=== PATIENT | male | born 1965 | race Caucasian/White ===

== ENCOUNTER 2016-12-20 06:03 | Day surgery (SDC) | payer OTHER ==
[2016-12-20] VITALS (12 sets, daily range): BP systolic 127–211; BP diastolic 64–129; PULSE 73–104; RESP 11–18; O2SAT 94–100
[~2016-12-20] VITALS: Ht 190.5 cm; Wt 91.4 kg
[~2016-12-20 06:03] MED LIST: Dexamethasone Inj 20 MG in 0.9% Sodium Chloride 50 ML IV ONE; GABA800T2 PO; IBUP800T28 PO; Lactated Ringer's 1,000 ML IV ONE
[2016-12-20] MEDS ORDERED: Rocuronium 10 mg/mL 5 mL Inj ONE (06:04)
[2016-12-20] MEDS ORDERED: MeTOProlol 1 mg/mL 5 mL Inj ONE (06:04)
[2016-12-20] MEDS ORDERED: Neostigmine 1 mg/mL 10 mL Inj ONE (06:04)
[2016-12-20] MEDS ORDERED: Glycopyrrolate 0.2 mg/mL 5 mL Inj ONE (06:04)
[2016-12-20] MEDS ORDERED: Ondansetron 2 mg/mL 2 mL Inj ONE (06:04)
[2016-12-20] MEDS ORDERED: Remifentanil 1 mg/3 mL Inj ONE (06:04)
[2016-12-20] MEDS ORDERED: fentaNYL-PF 50 mCg/mL 2 mL Inj ONE (06:04)
[2016-12-20] MEDS ORDERED: MetoCLOpramide 5 mg/mL 2 mL Inj ONE (06:04)
[2016-12-20] MEDS ORDERED: Propofol 10,000 mCg/mL 20 mL Inj ONE (06:04)
[2016-12-20] MEDS ORDERED: PRE20 PO (06:30)
[2016-12-20] MEDS ORDERED: Lactated Ringer's 1,000 ML IV ONE (07:30)
[2016-12-20] MEDS ORDERED: Bacitracin Ointment Packet TOPICAL ONE (07:55)
[2016-12-20] MEDS ORDERED: Lidocaine 1%-Epi 1:100,000 20 mL Inj INFILTRATE ONE (07:55)
[2016-12-20] MEDS ORDERED: Lactated Ringer's 500 ML IV PRN (08:07)
[2016-12-20] MEDS ORDERED: Lactated Ringer's 1,000 ML IV SCH (08:07)
--- NOTE | 2016-12-20 08:07 | PCM.HPANE ---
Patient Data Surgeon Admitting Provider: Attending Provider:Herman Espino MD Primary Care Physician:Lynne Guadalupe Other Provider:[place] [facility] Reason for Visit Deviated Nasal Septum, Nasal Polyp Ht/WT & BMI Height (Feet): 6 Height (Inches): 3.00 Weight (Kilograms): 91.4 Body Mass Index 25.00 Allergies Coded Allergies: No Known Allergies (Unverified , 12/15/16) Past Anesthesia History Anesthesia History: Denies:: Abnormal Airway, Anesthesia Reactions, Difficult Intubation, Fam Anesthesia Reaction Diabetes History Hx Diabetes?: No MRSA MRSA: No Medications Hypertension Medication: No Home Meds Incl Beta Izabel: No Reported Medications Prednisone (PredniSONE)20 Mg Klxopb25 Mg PO DAILY Ref 0 12/20/16 Ibuprofen 800 Mg [id number] Mg PO TID PRN For Pain Ref 0 12/15/16 Gabapentin 800 Mg [id number] Mg PO DAILY PRN For Pain Ref 0 12/15/16 History History of ENT Problems?: Yes HEENT History: Positive for:: Dysphagia (hx of dilations ) Sinus Problem (current admission problem, will finish course abx, prednisone ) Denies:: Abnormal Airway Cataracts Difficult Intubation Glaucoma Hearing Problem TMJ Hx of Heart Problems?: Yes Cardiovascular History: Denies:: AICD Edema Heart Murmur Hypertension Irregular Heartbeat Pacemaker Peripheral Vascular Rheumatic Fever Hx of Respiratory Problem?: Yes Respiratory History: Positive for:: Use of C-PAP Machine Denies:: Asthma COPD Emphysema Oxygen Administration Pneumonia Tuberculosis Use of Inhalers / NEBS Hx Neurologic Problems?: Yes Neurological History: Positive for:: Headaches Denies:: CVA Multiple Sclerosis Parkinson's Disease Seizures TIA Hx of GI Problems?: Yes Gastrointestinal History: Positive for:: Gastroesphageal Reflux Heartburn Hiatal Hernia Denies:: Cirrhosis Liver Disease Rectal Bleeding Hx of Problems?: No Genitourinary History: Denies:: Kidney Stones Urinary Tract Infection Male Hx: Denies:: Prostate Problems Skin History: Denies:: History Skin Disorders? Pressure Ulcers Hx Musculoskeletal Problems?: Yes Musculoskeletal History: Positive for:: Back Injury (recent L4-5) Denies:: Fibromyalgia Joint Replacement Osteoarthritis Systemic Lupus Hx of Psycho/Social Problems?: No Psycho Social History: Denies:: Anxiety Hx Depression Hx Surgeries?: Yes (lami, cherry hernia, knee scope, prior sinus) Hx Any Other Health Problems?: Yes Other History: Denies:: Cancer Thyroid Disease History Blood Transfusions: Positive for:: Accept Blood Products? Denies:: Blood Transfusions Hx Diabetes: No Hx Alcohol Use: YesAlcoholic Drinks Per Day: once weeklyHx Substance Use: No Have You Smoked inLast 12 mo: No Stop/Bang S-Snoring: Do You Snore Loudly: Yes T-Tired: feel tired, fatigued: No O-Obsered: Observed not breath: No P-Blood Pressure: treated: No B- Body Mass Index > 35 kg/m2: No A- Age over 50: Yes N- Neck Large Circumference: No G- Gender Male: Yes ALVARO Total Score: 3 Risk Assessment Category Category 1A: Patient has history of documented sleep apnea, and HAS NOT received any narcotic, sedative or anesthesia administration during this stay. Category 1B: Patient has history of documented sleep apnea, and HAS received any narcotic , sedative or anesthesia administration during this stay Category 2: Patient has SUSPECTED Obstructive Sleep Apnea, and HAS received any narcotic , sedative or anesthesia administration during this stay. Category 3: Patient has SUSPECTED Obstructive Sleep Apnea and HAS NOT received narcotic, sedative or anesthesia administration during this stay. Category 4: Outpatient in Procedural Areas with known sleep apnea or who screen positive for High Risk via the STOP/BANG questionnaire. Exam Exam Vital Signs Vital Signs Date Time Temp Pulse Resp B/P Pulse Ox O2 Delivery O2 Flow Rate FiO2 12/20/16 06:47 36.0 81 18 159/93 97 Room Air 12/20/16 06:47 CPAP/BIPAP General Appearance: Alert, Oriented X3, Cooperative, No Acute Distress HEENT/AIRWAY: MP 2, Neck Movement (FROM), Mouth Opening (3 FBMO) Lungs: Clear to Auscultation, Normal Air Movement Heart: Exam Unremarkable, Regular Rate/Rhythm, No Murmurs/Rubs/Gallops Plan Impression Patient chart reviewed, patient interviewed and anesthestic plan with risks, benefits, and alternatives discussed, and informed consent obtained. NPO Status: 10pm ASA Physical Status: ASA2 Mod Systemic Disease Anesthetic Support Modalities: [place] Scope Anesthetic Plan: GA Bene/Risks/Altern/Consents: Yes HP Complete Prior to Induction: Yes David Queen MD Dec 20, 2016 07:01
[2016-12-20] MEDS ORDERED: MetoCLOpramide 5 mg/mL 2 mL Inj IVPUSH PRN (08:10)
[2016-12-20] MEDS ORDERED: Atropine 0.4 mg/mL Inj IVPUSH PRN (08:10)
[2016-12-20] MEDS ORDERED: Phenylephrine 10,000 mCg/mL Inj IVPUSH PRN (08:10)
[2016-12-20] MEDS ORDERED: Labetalol 5 mg/mL 4 mL Inj IV PRN (08:10)
[2016-12-20] MEDS ORDERED: fentaNYL-PF 50 mCg/mL 2 mL Inj IVPUSH PRN (08:10)
[2016-12-20] MEDS ORDERED: EPHEDrine Sulfate 50 mg/mL Inj IVPUSH PRN (08:10)
[2016-12-20] MEDS ORDERED: Ondansetron 2 mg/mL 2 mL Inj IVPUSH PRN (08:10)
[2016-12-20] MEDS: hydrALAZINE 20 mg/mL Inj IVPUSH PRN ×2 (09:53→10:01)
[2016-12-20] MEDS: HYDROmorphone 1 mg/mL Inj IVPUSH PRN ×2 (10:15→10:25)
[2016-12-20] MEDS ORDERED: HYDROcodone-APAP 7.5-325 mg/15 mL 15 mL Solution ONE (10:16)
--- NOTE | 2016-12-20 10:27 | PCM.ANEP1 ---
Post Anesthesia Phase 1 PACU Phase 1 Assessment Vital Signs Vital Signs Date Time Temp Pulse Resp B/P Pulse Ox O2 Delivery O2 Flow Rate FiO2 12/20/16 10:25 94 16 140/72 95 Room Air 12/20/16 10:10 99 15 151/79 95 Room Air 12/20/16 10:04 80 11 150/85 98 Simple Mask 8 12/20/16 10:00 37.2 79 11 161/91 98 Simple Mask 8 12/20/16 09:56 73 11 168/108 100 Simple Mask 8 12/20/16 09:50 76 16 180/116 99 Simple Mask 8 12/20/16 09:45 96 18 191/114 99 Simple Mask 8 12/20/16 09:39 36.5 104 15 211/129 100 Simple Mask 8 12/20/16 06:47 36.0 81 18 159/93 97 Room Air 12/20/16 06:47 CPAP/BIPAP Anesthetic Administered: GA Level of Alertness: Awake, talking GRACIA's with Equal Strength: Yes Pain: No Nausea or Vomiting: No Oxygen Delivery: Simple Mask Lungs: Clear to Auscultation, Normal Air Movement Dermatome Level: Full Sensation David Queen MD Dec 20, 2016 10:27
--- NOTE | 2016-12-20 10:28 | PCM.ANEP2 ---
Post Anesthesia Evaluation ASA/CMS Post Anesthesia VS in Patient's Normal Range?: Yes Resp Stable; Airway Patent?: Yes CV Function & Hydration Stable: Yes Mental Status Recovered?: Yes Pain control Satisfactory?: Yes N/V Control Satisfactory?: Yes David Queen MD Dec 20, 2016 10:27
--- NOTE | 2016-12-20 22:13 | OP ---
[address] [address] OPERATIVE REPORT PATIENT: ROBBIE MOE : 1965 MR#: [id number] ADMIT: 12/20/2016 JOB ID: [id number] DATE OF SURGERY: 12/20/2016 SURGEON: Herman Espino MD PREOPERATIVE DIAGNOSIS(ES): POSTOPERATIVE DIAGNOSIS(ES): INDICATIONS FOR PROCEDURE: Chronic valdez polypoid sinusitis, nasal obstruction and nasal polyps. OPERATION PERFORMED: 1. Right and left frontal endoscopic sinusotomy. 2. Right and left anterior and posterior ethmoid endoscopic sinusotomy. 3. Right sphenoid endoscopic sinusotomy. 4. Right maxillary endoscopic sinusotomy. 5. Right and left Submucous resection of the inferior turbinates. OPERATIVE FINDINGS: Polypoid degeneration with partial closure of the windows bleeding into the frontal ethmoids, right more than left. Right sphenoid and right maxillary sinus enlargement of the right and left inferior turbinates with reduced nasal airway. PROCEDURE IN DETAIL: With the patient supine on the operating table, general orotracheal anesthesia was used. Face was prepped and draped in a sterile fashion. Xylocaine 2% with epinephrine and 0.5% Marcaine with epinephrine were used two parts to one part for medial and lateral wall of the nasal chambers, anesthesia and hemostasis. Thereafter using the microdebrider and the digital video equipment, the patient had enlargement of the right maxillary sinus with removal of adjacent polypoid tissue, removal of polyps and thickening in the right and left anterior-posterior ethmoid sinuses, removal in the nasofrontal duct region until the frontal sinus could be visualized, right and left. Removal of degenerative polypoid tissue and enlargement of the right sphenoid ostium. The middle turbinates are part of the anterior ethmoids and bilaterally they were reduced in size since they were polypoid until an airway superiorly could be obtained. Inferior turbinates are hypertrophied and submucous dissection through an anterior-inferior incision with removal of turbinate bone was performed until the lower airway could be obtained. Judicious suction cautery was utilized. Thereafter, two Merocel sponges on the right and one on the left in the frontal ethmoid region were placed with Afrin and pull-out strings were tied beneath the nostrils. Procedure terminated and the patient turned over to Anesthesia for emergence from anesthetics without known complications.
== END 2016-12-20 23:59 | disposition home or self-care (01) ==
LOC: SAS 06:03
PROVIDERS: ATTEND Otolaryngology Facial Plastic Surgery
DX: J32.4 Chronic pansinusitis (principal); J34.2 Deviated nasal septum; J34.89 Other specified disorders of nose and nasal sinuses; J33.8 Other polyp of sinus; J34.3 Hypertrophy of nasal turbinates; I97.3 Postprocedural hypertension
CPT/HCPCS: 30140; 31255; 31256; 31276; 31287; J0360; J1100; J1170; J2405; J2710; J2765; J7120